=== PATIENT | female | born 1945 ===

== ENCOUNTER 2020-10-04 12:57 | Inpatient (IN) ==
[2020-10-04] MEDS ORDERED: SODIUM CHLORIDE 0.9% 1,000 ML IV STA (13:16)
[2020-10-04 14:02] LABS: Eosinophils % 0.2 % (0.00-10.9); Immature Granulocytes % 0.8 %; Lymphocytes # 1.8 10*3/uL (1.4-4.0); Lymphocytes % 14.4 % (21.3-54.2); Mean Corpuscular HGB Conc 28.8 GM/DL (32-36); Mean Corpuscular Volume 105.6 FL (87-102); Mean Platelet Volume 10.9 FL (9.6-12.0); NRBC # 0.02 10*3/uL; Neutrophils % 78.6 % (38.7-73.9); Platelet Count 324 T/CUMM (130-400); Red Blood Count 1.25 MC/CUMM (3.8-5.5); Red Cell Distribution Width 26.9 % (9.3-17.3); White Blood Count 12.1 T/CUMM (4-12)
[2020-10-04 14:05] LABS: Hemoglobin 3.8 GM/DL (12.0-16.0)
[2020-10-04 14:06] LABS: Hematocrit 13.2 VOL% (35.7-47.0)
[2020-10-04 14:11] LABS: Alanine Aminotransferase 31 U/L (13-56); Albumin 2.1 G/DL (3.4-5.0); Alkaline Phosphatase 68 U/L (45-117); Aspartate Amino Transferase 23 U/L (0-37); Bilirubin,Total < 0.39 MG/DL (0.2-1.0); Blood Urea Nitrogen 68 MG/DL (7-18); Calcium 8.1 MG/DL (8.5-10.1); Carbon Dioxide 22 MMOL/L (21-32); Estimated Glom Filtration Rate 34 ML/MIN; Glucose 145 MG/DL (74-106); Osmolality,Calculated 331.2 MOS/KG (273-304); Potassium 4.1 MMOL/L (3.5-5.1); Sodium 156 MMOL/L (136-145)
[2020-10-04] MEDS ORDERED: SODIUM CHLORIDE 0.9% 1,000 ML IV PRN ×3 (14:30→17:40)
[2020-10-04] MEDS ORDERED: MORPHINE 4 MG/1 ML VIAL ONE (14:33)
[2020-10-04] MEDS: NOREPINEPHRINE 8 MG in SODIUM CHLORIDE 0.9% 242 ML IV PRN (14:41)
[2020-10-04] MEDS ORDERED: MORPHINE 4 MG/1 ML VIAL IV STA (14:45)
[2020-10-04 14:53] LABS: Bilirubin,Urine Negative (Negative); Blood, Urine Negative (Negative); Glucose,Urine (UA) Negative (Negative); Hyaline Casts,Urine 52 /LPF (0-3); Ketones,Urine Negative (Negative); Mucus,Urine Occasional /LPF (Occasional); Nitrite,Urine Negative (Negative); Protein,Urine Negative; RBC,Urine <1 /HPF (0-4); Squamous Epithelial Cell,Urine Occasional /HPF (0-10); Urine Appearance CLEAR (Clear); Urine Color Yellow (Yellow); Urine Specific Gravity 1.018 (1.001-1.035); Urine Urobilinogen < 2.0 EU/DL (0.2-1.0); WBC,Urine 1 /HPF (0-6)
[2020-10-04] MEDS ORDERED: HYDROmorphone 2 MG/1 ML VIAL IV PRN (14:54)
[2020-10-04] MEDS ORDERED: HYDROmorphone 2 MG/1 ML VIAL IV STA (14:54)
[2020-10-04] MEDS ORDERED: hydrOXYzine HCL 25 MG TABLET PO STA (14:54)
[2020-10-04] MEDS ORDERED: LORazepam 2 MG/1 ML VIAL IV PRN (14:55)
[2020-10-04] MEDS ORDERED: LORazepam 2 MG/1 ML VIAL IV STA (14:55)
[2020-10-04] MEDS ORDERED: ONDANSETRON 4 MG/2 ML VIAL ONE (14:57)
[2020-10-04] MEDS ORDERED: ZALEPLON 5 MG CAPSULE PO PRN (14:59)
[2020-10-04] MEDS ORDERED: ALBUTEROL 2.5 MG/3 ML NEB RESP TX PRN (14:59)
[2020-10-04] MEDS ORDERED: ONDANSETRON 4 MG/2 ML VIAL IV PRN (14:59)
[2020-10-04] MEDS: FAMOTIDINE 20 MG/2 ML VIAL IV SCH (15:36)
[2020-10-04] MEDS ORDERED: PNEUMOCOCCAL VACCINE (13 VALENT) 0.5 ML SYRINGE IM ONE (17:00)
[2020-10-04] MEDS ORDERED: INFLUENZA VIRUS VACCINE 0.5 ML SYRINGE IM ONE (17:01)
[2020-10-04] MEDS ORDERED: HALOPERIDOL 5 MG/ML AMP IM PRN (17:42)
[2020-10-04] MEDS: hydrOXYzine HCL 25 MG TABLET PO SCH ×2 (18:33→22:00)
[2020-10-04] MEDS: HYDROCORTISONE 100 MG VIAL IV SCH (21:45)
[2020-10-05] MEDS ORDERED: LORazepam 2 MG/1 ML VIAL ONE (00:38)
[2020-10-05 02:31] LABS: Hemoglobin 8.6 GM/DL (12.0-16.0)
[2020-10-05] MEDS: NOREPINEPHRINE 8 MG in SODIUM CHLORIDE 0.9% 242 ML IV PRN (02:52)
[2020-10-05] MEDS: HYDROCORTISONE 100 MG VIAL IV SCH ×4 (03:15→21:43)
[2020-10-05] MEDS: FAMOTIDINE 20 MG/2 ML VIAL IV SCH (03:17)
[2020-10-05] MEDS: CAMPHOR/MENTHOL LOTION 222 ML BOTTLE TOP PRN (03:20)
[2020-10-05] MEDS: MOISTURIZING CREAM (EUCERIN) 106 GM JAR TOP PRN (03:25)
[2020-10-05 03:47] LABS: Basophils % 0.2 % (0.0-0.8); Eosinophils # 0.2 10*3/uL (0.0-0.87); Eosinophils % 1.1 % (0.00-10.9); Hematocrit 27.8 VOL% (35.7-47.0); Hemoglobin 8.9 GM/DL (12.0-16.0); Immature Granulocytes % 1.4 %; Immature Granulocytes Absolute 0.18 #; Lymphocytes # 1.7 10*3/uL (1.4-4.0); Lymphocytes % 12.6 % (21.3-54.2); Mean Corpuscular Volume 96.5 FL (87-102); Mean Platelet Volume 10.6 FL (9.6-12.0); Monocytes % 6.1 % (1.7-12.7); NRBC # 0.08 10*3/uL; Neutrophils % 78.6 % (38.7-73.9); Platelet Count 207 T/CUMM (130-400); Red Blood Count 2.88 MC/CUMM (3.8-5.5); Red Cell Distribution Width 19.7 % (9.3-17.3); White Blood Count 13.1 T/CUMM (4-12)
[2020-10-05 04:23] LABS: Alanine Aminotransferase 29 U/L (13-56); Albumin 2.1 G/DL (3.4-5.0); Alkaline Phosphatase 64 U/L (45-117); Aspartate Amino Transferase 23 U/L (0-37); Blood Urea Nitrogen 65 MG/DL (7-18); Calcium 7.7 MG/DL (8.5-10.1); Carbon Dioxide 19 MMOL/L (21-32); Estimated Glom Filtration Rate 39 ML/MIN; Glucose 88 MG/DL (74-106); Osmolality,Calculated 324.3 MOS/KG (273-304); Potassium 3.9 MMOL/L (3.5-5.1); Sodium 155 MMOL/L (136-145); Total Protein 5.6 G/DL (6.4-8.3); Troponin I < 0.015 NG/ML (0.00-0.045)
[2020-10-05] MEDS ORDERED: SODIUM CHLORIDE 0.9% 1,000 ML IV ONE (04:47)
[2020-10-05] MEDS ORDERED: ePHEDrine 50 MG/ML VIAL ONE (09:41)
[2020-10-05] MEDS ORDERED: propofoL 200 MG/20 ML VIAL IV ONE (09:43)
[2020-10-05] MEDS ORDERED: ETOMIDATE 40 MG/20 ML VIAL IV ONE (09:43)
[2020-10-05] MEDS ORDERED: LIDOCAINE 2% 5 ML VIAL ONE (09:43)
[2020-10-05] MEDS: DEXTROSE 5% NACL 0.45% 1,000 ML IV SCH ×2 (10:38→18:17)
[2020-10-05] MEDS: hydrOXYzine HCL 25 MG TABLET PO SCH ×4 (10:38→21:45)
[2020-10-05] MEDS: PANTOPRAZOLE 40 MG VIAL IV SCH ×2 (10:39→21:35)
[2020-10-06] MEDS: CAMPHOR/MENTHOL LOTION 222 ML BOTTLE TOP PRN (01:00)
[2020-10-06] MEDS: MOISTURIZING CREAM (EUCERIN) 106 GM JAR TOP PRN (01:00)
[2020-10-06] MEDS: HYDROCORTISONE 100 MG VIAL IV SCH ×4 (01:01→21:38)
[2020-10-06] MEDS: DEXTROSE 5% NACL 0.45% 1,000 ML IV SCH ×2 (01:11→12:56)
[2020-10-06 05:10] LABS: Hematocrit 24.1 VOL% (35.7-47.0); Hemoglobin 7.8 GM/DL (12.0-16.0); Immature Granulocytes Absolute 0.11 #; Lymphocytes # 0.8 10*3/uL (1.4-4.0); Lymphocytes % 7.8 % (21.3-54.2); Mean Corpuscular HGB Conc 32.4 GM/DL (32-36); Mean Corpuscular Volume 94.5 FL (87-102); Mean Platelet Volume 10.1 FL (9.6-12.0); Monocytes % 2.9 % (1.7-12.7); NRBC # 0.04 10*3/uL; Neutrophils % 88.3 % (38.7-73.9); Platelet Count 181 T/CUMM (130-400); Red Blood Count 2.55 MC/CUMM (3.8-5.5); Red Cell Distribution Width 20.8 % (9.3-17.3); White Blood Count 10.6 T/CUMM (4-12)
[2020-10-06 05:37] LABS: Alanine Aminotransferase 26 U/L (13-56); Alkaline Phosphatase 64 U/L (45-117); Aspartate Amino Transferase 22 U/L (0-37); Bilirubin,Total < 0.39 MG/DL (0.2-1.0); Blood Urea Nitrogen 47 MG/DL (7-18); Calcium 7.5 MG/DL (8.5-10.1); Carbon Dioxide 19 MMOL/L (21-32); Estimated Glom Filtration Rate 48 ML/MIN; Glucose 148 MG/DL (74-106); Osmolality,Calculated 317.6 MOS/KG (273-304); Potassium 3.9 MMOL/L (3.5-5.1); Sodium 153 MMOL/L (136-145); Total Protein 5.2 G/DL (6.4-8.3)
[2020-10-06] MEDS: PANTOPRAZOLE 40 MG VIAL IV SCH ×2 (08:07→21:44)
[2020-10-06] MEDS: BISACODYL 5 MG TABLET PO SCH ×3 (08:08→22:16)
[2020-10-06] MEDS: hydrOXYzine HCL 25 MG TABLET PO SCH ×4 (08:38→21:38)
[2020-10-06] MEDS ORDERED: FUROSEMIDE 20 MG/2 ML VIAL IV PRN (08:51)
[2020-10-06] MEDS ORDERED: SODIUM CHLORIDE 0.9% 1,000 ML IV PRN (08:51)
[2020-10-06 14:01] LABS: Hematocrit 25.9 VOL% (35.7-47.0); Hemoglobin 8.5 GM/DL (12.0-16.0)
[2020-10-06] MEDS ORDERED: POLYETHYLENE GLYCOL POWDER 255 GM BOTTLE NG ONE (18:00)
[2020-10-06] MEDS ORDERED: POLYETHYLENE GLYCOL POWDER 255 GM BOTTLE PO ONE (18:00)
[2020-10-06] MEDS ORDERED: MAGNESIUM CITRATE 300 ML BOTTLE PO ONE (21:00)
[2020-10-07] MEDS: HYDROCORTISONE 100 MG VIAL IV SCH ×4 (03:32→20:23)
[2020-10-07 06:34] LABS: Basophils % 0.1 % (0.0-0.8); Hematocrit 29.5 VOL% (35.7-47.0); Hemoglobin 9.5 GM/DL (12.0-16.0); Immature Granulocytes Absolute 0.12 #; Lymphocytes # 1.1 10*3/uL (1.4-4.0); Lymphocytes % 8.6 % (21.3-54.2); Mean Corpuscular HGB Conc 32.2 GM/DL (32-36); Mean Platelet Volume 10.8 FL (9.6-12.0); Monocytes % 4.7 % (1.7-12.7); NRBC # 0.03 10*3/uL; Neutrophils % 85.6 % (38.7-73.9); Platelet Count 181 T/CUMM (130-400); Red Blood Count 3.01 MC/CUMM (3.8-5.5); Red Cell Distribution Width 20.5 % (9.3-17.3); White Blood Count 12.2 T/CUMM (4-12)
[2020-10-07 06:51] LABS: Calcium 8.2 MG/DL (8.5-10.1); Osmolality,Calculated 309.9 MOS/KG (273-304); Potassium 3.1 MMOL/L (3.5-5.1)
[2020-10-07 06:54] LABS: Alanine Aminotransferase 30 U/L (13-56); Albumin 2.1 G/DL (3.4-5.0); Alkaline Phosphatase 75 U/L (45-117); Aspartate Amino Transferase 26 U/L (0-37); Bilirubin,Total < 0.39 MG/DL (0.2-1.0); Blood Urea Nitrogen 41 MG/DL (7-18); Calcium 8.3 MG/DL (8.5-10.1); Carbon Dioxide 17 MMOL/L (21-32); Estimated Glom Filtration Rate 54 ML/MIN; Glucose 123 MG/DL (74-106); Potassium 3.1 MMOL/L (3.5-5.1); Sodium 150 MMOL/L (136-145); Total Protein 5.9 G/DL (6.4-8.3)
[2020-10-07 07:24] LABS: Total Protein (Chem) 5.6 G/DL (6.4-8.3)
[2020-10-07] MEDS: PANTOPRAZOLE 40 MG VIAL IV SCH ×2 (09:09→20:25)
[2020-10-07] MEDS: POTASSIUM CHLORIDE RIDER 10 MEQ in PREMIX 1 EACH IV PRN ×4 (09:09→16:05)
[2020-10-07] MEDS: hydrOXYzine HCL 25 MG TABLET PO SCH ×4 (09:09→20:22)
[2020-10-07 09:11] LABS: Albumin (SPE) 2.9 G/DL (3.2-5.3); Albumin (SPE) Rel % 51.1 %; Alpha 1 (SPE) 0.2 G/DL (0.1-0.4); Alpha 1 (SPE) Rel % 4.4 %; Alpha 2 (SPE) 0.6 G/DL (0.4-1.0); Alpha 2 (SPE) Rel % 10.7 %; Beta (SPE) 0.8 G/DL (0.5-1.1); Beta (SPE) Rel % 13.5 %; Gamma (SPE) 1.1 G/DL (0.7-1.7); Gamma (SPE) Rel % 20.3 %
[2020-10-07] MEDS: DEXTROSE 5% NACL 0.45% 1,000 ML IV SCH ×4 (09:27→23:26)
[2020-10-07] MEDS ORDERED: LACTATED RINGERS 1,000 ML IV SCH (12:30)
[2020-10-07] MEDS ORDERED: LIDOCAINE 2% 5 ML VIAL ONE (12:35)
[2020-10-07] MEDS ORDERED: propofoL 200 MG/20 ML VIAL IV ONE (12:35)
[2020-10-07] MEDS ORDERED: ETOMIDATE 20 MG/10 ML VIAL IV ONE (12:35)
[2020-10-07] MEDS ORDERED: ePHEDrine 50 MG/ML VIAL ONE (12:36)
[2020-10-07] MEDS ORDERED: PHENYLEPHRINE 1 MG/10 ML SYRINGE IV ONE (12:59)
[2020-10-07] MEDS: POLYETHYLENE GLYCOL POWDER 17 GM PACK PO SCH (20:22)
[2020-10-08] MEDS: HYDROCORTISONE 100 MG VIAL IV SCH ×4 (02:28→20:47)
[2020-10-08] MEDS: DEXTROSE 5% NACL 0.45% 1,000 ML IV SCH ×2 (07:02→22:08)
[2020-10-08 07:29] LABS: Hematocrit 23.3 VOL% (35.7-47.0); Hemoglobin 7.5 GM/DL (12.0-16.0); Immature Granulocytes % 0.9 %; Lymphocytes # 0.7 10*3/uL (1.4-4.0); Lymphocytes % 6.7 % (21.3-54.2); Mean Corpuscular HGB Conc 32.2 GM/DL (32-36); Mean Corpuscular Volume 95.9 FL (87-102); Monocytes % 4.5 % (1.7-12.7); NRBC # 0.02 10*3/uL; Neutrophils % 87.9 % (38.7-73.9); Platelet Count 154 T/CUMM (130-400); Red Blood Count 2.43 MC/CUMM (3.8-5.5); Red Cell Distribution Width 21.1 % (9.3-17.3); White Blood Count 11.1 T/CUMM (4-12)
[2020-10-08] MEDS: hydrOXYzine HCL 25 MG TABLET PO SCH ×4 (08:14→20:56)
[2020-10-08] MEDS: PANTOPRAZOLE 40 MG VIAL IV SCH (08:15)
[2020-10-08] MEDS: POLYETHYLENE GLYCOL POWDER 17 GM PACK PO SCH ×2 (08:15→20:56)
[2020-10-08] MEDS ORDERED: SODIUM CHLORIDE 0.9% 1,000 ML IV PRN (10:06)
[2020-10-08 18:23] LABS: Hematocrit 30.1 VOL% (35.7-47.0); Hemoglobin 9.7 GM/DL (12.0-16.0)
[2020-10-08] MEDS: PANTOPRAZOLE 40 MG TABLET PO SCH (20:56)
[2020-10-09] MEDS: HYDROCORTISONE 100 MG VIAL IV SCH ×2 (03:15→09:41)
[2020-10-09 05:56] LABS: Basophils % 0.1 % (0.0-0.8); Hematocrit 27.1 VOL% (35.7-47.0); Hemoglobin 8.7 GM/DL (12.0-16.0); Immature Granulocytes % 0.8 %; Immature Granulocytes Absolute 0.11 #; Lymphocytes # 0.7 10*3/uL (1.4-4.0); Lymphocytes % 5.1 % (21.3-54.2); Mean Corpuscular HGB Conc 32.1 GM/DL (32-36); Mean Corpuscular Volume 95.1 FL (87-102); Monocytes % 4.8 % (1.7-12.7); Neutrophils % 89.2 % (38.7-73.9); Platelet Count 162 T/CUMM (130-400); Red Blood Count 2.85 MC/CUMM (3.8-5.5); Red Cell Distribution Width 19.9 % (9.3-17.3); White Blood Count 13.7 T/CUMM (4-12)
[2020-10-09] MEDS: DEXTROSE 5% NACL 0.45% 1,000 ML IV SCH (06:10)
[2020-10-09 06:24] LABS: Band Neutrophils 2 % (0-10); Lymphocytes 4 % (20-55); Metamyelocytes 1 %; Segmented Neutrophils 91 % (50-85); Total Cells Counted 100
[2020-10-09 06:25] LABS: Hypochromasia 2+; Platelet Estimate Normal
[2020-10-09 06:26] LABS: Burr Cells 2+
[2020-10-09] MEDS: hydrOXYzine HCL 25 MG TABLET PO SCH (09:42)
[2020-10-09] MEDS: PANTOPRAZOLE 40 MG TABLET PO SCH (09:42)
[2020-10-09] MEDS: POLYETHYLENE GLYCOL POWDER 17 GM PACK PO SCH (09:42)
[2020-10-09 11:45] VITALS: BP 133/68
== END 2020-10-09 11:45 | disposition home or self-care (01) | DRG 377 ==
LOC: N.ED 12:57 → SUATTDRO 14:18 → N.ICU 14:18 → N.5E 10-06 10:38
PROVIDERS: ADMIT Internal Medicine; ATTEND Family Medicine